=== PATIENT | female | born 1935 | race Caucasian/White ===

== ENCOUNTER 2024-02-16 15:08 | Emergency (ER) | payer MEDICARE, BC ==
[~2024-02-16] VITALS: Ht 154.9 cm; Wt 51.7 kg
[2024-02-16] MEDS: IV NORMAL SALINE 1000 ML BAG IV ONE (16:10)
[2024-02-16 16:14] LABS: BASOPHILS % (AUTO) 0.4 % (0.0-2.0); HEMATOCRIT 37.8 % (31.2-41.9); HEMOGLOBIN 12.7 g/dL (10.9-14.3); LYMPHOCYTES # (AUTO) 0.8 K/uL (0.8-4.8); LYMPHOCYTES % (AUTO) 8.9 % (20.5-51.5); MEAN CORPUSCULAR HEMOGLOBIN 29.7 uug (24.7-32.8); MEAN CORPUSCULAR HGB CONC 34 g/dL (32.3-35.6); MEAN CORPUSCULAR VOLUME 88.4 fL (75.5-95.3); MONOCYTES # (AUTO) 0.6 K/uL (0.1-1.30); MONOCYTES % (AUTO) 6.7 % (0.0-11.0); PLATELET COUNT (AUTO) 180 K/uL (179-408); RED BLOOD CELL COUNT(AUTO) 4.28 MIL/uL (3.63-4.92); RED CELL DISTRIBUTION WIDTH 14.4 % (12.3-17.7); WHITE BLOOD COUNT (AUTO) 9.5 K/uL (3.8-11.8)
[2024-02-16 16:23] LABS: DIFFERENTIAL COMMENT 1
[2024-02-16 16:25] LABS: CARBON DIOXIDE 26 mmol/L (21-32); CHLORIDE 104 mmol/L (98-107); CREATININE 1.3 mg/dL (0.6-1.3); GLUCOSE 122 mg/dL (74-106); SODIUM SERUM 138 mmol/L (136-145); UREA NITROGEN, BLOOD 24 mg/dL (7-18)
[2024-02-16 16:27] LABS: POTASSIUM 4.1 mmol/L (3.5-5.1)
[2024-02-16 16:31] LABS: BILIRUBIN,DIRECT 0.1 mg/dL (0.0-0.2); BILIRUBIN,TOTAL 0.4 mg/dL (0.2-1.0)
[2024-02-16] MEDS ORDERED: PROM5SYR PO (16:47)
[2024-02-16] MEDS ORDERED: ACETAMINOPHEN 500 MG TABLET ONE (16:51)
[2024-02-16] MEDS: ACETAMINOPHEN 500 MG TABLET PO ONE (16:55)
[2024-02-16 17:26] VITALS: BP 128/66; O2SAT 99
== END 2024-02-16 17:28 | disposition home or self-care (01) ==
LOC: ER 15:08
DX: J06.9 Acute upper respiratory infection, unspecified (principal); B97.89 Other viral agents as the cause of diseases classified elsewhere; R06.00 Dyspnea, unspecified; R07.9 Chest pain, unspecified; Z88.0 Allergy status to penicillin; Z88.1 Allergy status to other antibiotic agents; Z88.7 Allergy status to serum and vaccine; Z96.652 Presence of left artificial knee joint; Z86.79 Personal history of other diseases of the circulatory system; Z20.822 Contact with and (suspected) exposure to COVID-19
CPT/HCPCS: 99284; 96360; 71045; 87426; 87804 ×2; 80076; 80048; 85025; 36415; J7040; A4606; A4663; A9150